=== PATIENT | male | born 1980 | race Caucasian/White ===

== ENCOUNTER → 2021-02-16 | Outpatient (CLI) | payer BC, OTHER | LOC: SJCVCIMAG 08:46 | PROVIDERS: ATTEND Internal Medicine Cardiovascular Disease | DX: R07.9 Chest pain, unspecified (principal); R06.00 Dyspnea, unspecified; J18.9 Pneumonia, unspecified organism; R42 Dizziness and giddiness; Z82.49 Family history of ischemic heart disease and other diseases of the circulatory system; Z79.82 Long term (current) use of aspirin; Z79.899 Other long term (current) drug therapy; Z72.89 Other problems related to lifestyle ==

== ENCOUNTER → 2021-03-02 | Outpatient (CLI) | payer BC, OTHER | LOC: RAD 13:16 | PROVIDERS: ATTEND Family Medicine | DX: Z00.00 Encounter for general adult medical examination without abnormal findings (principal); J84.10 Pulmonary fibrosis, unspecified; I89.8 Other specified noninfective disorders of lymphatic vessels and lymph nodes; J98.4 Other disorders of lung ==

== ENCOUNTER → 2021-03-02 | Outpatient (CLI) | payer OTHER | LOC: CAT 13:09 | PROVIDERS: ATTEND Internal Medicine Cardiovascular Disease | DX: Z13.6 Encounter for screening for cardiovascular disorders (principal); I25.10 Atherosclerotic heart disease of native coronary artery without angina pectoris; E78.00 Pure hypercholesterolemia, unspecified ==

== ENCOUNTER → 2021-06-07 | Outpatient (CLI) | payer BC, OTHER | LOC: SJCVCIMAG 11:23 | PROVIDERS: ATTEND Family Medicine | DX: M79.661 Pain in right lower leg (principal) ==

== ENCOUNTER → 2021-09-08 | Outpatient (CLI) | payer OTHER | LOC: SJCVCIMAG 09:28 | PROVIDERS: ATTEND Nuclear Medicine Nuclear Cardiology | DX: I82.811 Embolism and thrombosis of superficial veins of right lower extremity (principal); E78.00 Pure hypercholesterolemia, unspecified; M79.89 Other specified soft tissue disorders; Z79.899 Other long term (current) drug therapy; Z82.49 Family history of ischemic heart disease and other diseases of the circulatory system; E78.5 Hyperlipidemia, unspecified; Z72.89 Other problems related to lifestyle; Z79.82 Long term (current) use of aspirin ==

== ENCOUNTER → 2021-09-20 | Outpatient (CLI) | payer OTHER | LOC: SJCVCIMAG 06:50 | PROVIDERS: ATTEND Nuclear Medicine Nuclear Cardiology | DX: M79.605 Pain in left leg (principal); M79.89 Other specified soft tissue disorders; Z86.718 Personal history of other venous thrombosis and embolism ==